=== PATIENT | male | born 1975 | race Caucasian/White ===

== ENCOUNTER → 2017-05-07 | Outpatient (CLI) | payer OTHER ==
[~2017-05-07] MED LIST: FIORICET PO; HYDROCODON-ACE1 EAC1 PO; PERCOCET 5-3251 EACH PO; VALIUM10 MG PO
== END ==
LOC: RAD 16:32
DX: S22.32XA Fracture of one rib, left side, initial encounter for closed fracture (principal); X58.XXXA Exposure to other specified factors, initial encounter; Y93.89 Activity, other specified; Y92.89 Other specified places as the place of occurrence of the external cause; Y99.8 Other external cause status

== ENCOUNTER → 2017-06-17 | Outpatient (CLI) | payer OTHER | LOC: RAD 15:46 | DX: R05 Cough (principal) ==

== ENCOUNTER → 2018-10-16 | Outpatient (CLI) | payer OTHER | LOC: CAT 10:12 | DX: Z13.6 Encounter for screening for cardiovascular disorders (principal); E78.00 Pure hypercholesterolemia, unspecified; I25.10 Atherosclerotic heart disease of native coronary artery without angina pectoris ==